=== PATIENT | female | born 1975 ===

== ENCOUNTER 2017-08-04 12:58 | Emergency (ER) | payer MEDICARE ==
[2017-08-04] MEDS ORDERED: Sodium Chloride 0.9% 500 ML IV STA (14:01)
[2017-08-04 14:16] LABS: BASO # 0.1 K/uL (0.0-0.2); EOS # 1.1 K/uL (0.0-0.7); EOS % 16.8 % (0.0-4.0); LYMPH # 1.6 K/uL (1.0-4.3); LYMPH % 25.6 % (20.0-40.0); MEAN CORPUSCULAR HEMOGLOBIN 22.1 pg (27.0-31.0); MEAN CORPUSCULAR HGB CONC 32.4 g/dL (33.0-37.0); MEAN PLATELET VOLUME 8.8 fL (7.2-11.7); MONO # 0.5 K/uL (0.0-0.8); MONO % 7.4 % (0.0-10.0); NEUT # 3.1 K/uL (1.8-7.0); NEUT % 48.2 % (50.0-75.0); RBC 4.45 Mil/uL (3.80-5.20); RED CELL DISTRIBUTION WIDTH 17.3 % (11.5-14.5); WHITE BLOOD COUNT 6.3 K/uL (4.8-10.8)
[2017-08-04 14:17] LABS: HEMOGLOBIN 9.8 g/dL (11.0-16.0)
[2017-08-04 14:24] LABS: INR 6.3
[2017-08-04 14:28] LABS: PROTHROMBIN TIME 69.2 SECONDS (9.7-12.2)
[2017-08-04 14:32] LABS: ALB/GLOB RATIO 1.2 (1.0-2.1); ALBUMIN 4.2 g/dL (3.5-5.0); ALT/SGPT 34 U/L (9-52); AST/SGOT 30 U/L (14-36); BLOOD UREA NITROGEN 10 mg/dL (7-17); CALCIUM 9.4 mg/dl (8.6-10.4); GFR AFRICAN-AMERICAN > 60; GFR NON-AFRICAN AMERICAN > 60
--- NOTE | 2017-08-04 14:47 | C.PDOC ---
History Of Present Illness 41-year-old female, presents to the emergency department, sent by Dr Arreola for evaluation of high INR level >8. Patient denies any vaginal or rectal bleeding, but admits to hematemesis. Denies fever, chest pain or shortness of breath. No other complaints at this time. Time Seen by Provider: 08/04/17 13:15 Chief Complaint (Nursing): Abnormal Labs History Per: Patient History/Exam Limitations: no limitations Current Symptoms Are (Timing): Still Present Past Medical History Reviewed: Historical Data, Nursing Documentation, Vital Signs Vital Signs: Last Vital Signs Temp 98.7 F 08/04/17 17:54 Pulse 92 H 08/04/17 17:54 Resp 18 08/04/17 17:54 BP 156/89 H 08/04/17 17:54 Pulse Ox 98 08/04/17 17:54 - Medical History PMH: Anxiety, Atrial Fibrillation, Diabetes, HTN Family History: States: No Known Family Hx - Social History Hx Alcohol Use: No Hx Substance Use: No - Immunization History Hx Tetanus Toxoid Vaccination: No Hx Influenza Vaccination: Yes Hx Pneumococcal Vaccination: No Review Of Systems Constitutional: Negative for: Fever, Chills Cardiovascular: Negative for: Chest Pain Respiratory: Negative for: Shortness of Breath Gastrointestinal: Negative for: Vomiting Neurological: Negative for: Weakness, Numbness, Headache, Dizziness Physical Exam - Physical Exam Appears: Non-toxic, No Acute Distress Skin: Normal Color, Warm, Dry, No Rash Head: Atraumatic, Normacephalic Eye(s): bilateral: PERRL Nose: Normal Oral Mucosa: Moist Lips: Normal Appearing Neck: Normal ROM Chest: Symmetrical Cardiovascular: Rhythm Regular, No Murmur Respiratory: Normal Breath Sounds, No Accessory Muscle Use Rectal: Normal Exam, Heme Negative Back: Normal Inspection Extremity: Normal ROM, No Deformity, No Swelling Neurological/Psych: Oriented x3, Normal Speech ED Course And Treatment - Laboratory Results Result Diagrams: 08/04/17 14:10 08/04/17 14:10 O2 Sat by Pulse Oximetry: 98 (RA) Pulse Ox Interpretation: Normal Progress Note: Bloodwork, IVF and UA ordered and reviewed. Patient was given Vit K po. Patient is stable to be d/c home with PMD follow up tomorrow. Disposition - Disposition Disposition: HOME/ ROUTINE Disposition Time: 17:22 Condition: STABLE Additional Instructions: Follow up with your PMD within 1-2 days. Do not take Coumadin today. Please return to your PMD to check INR tomorrow. Return to ED immediately if feel worse. Instructions: What to Do When Your INR Is Too High Forms: [facility] (Swedish) Print Language: ALBANIAN - Clinical Impression Clinical Impression: Warfarin-induced coagulopathy - Scribe Statement The provider has reviewed the documentation as recorded by the Scribe (Sarika Tran) All medical record entries made by the Scribe were at my direction and personally dictated by me. I have reviewed the chart and agree that the record accurately reflects my personal performance of the history, physical exam, medical decision making, and the department course for this patient. I have also personally directed, reviewed, and agree with the discharge instructions and disposition.
[2017-08-04 15:15] LABS: HCG,QUALITATIVE URINE NEGATIVE (NEGATIVE)
[2017-08-04 15:19] VITALS: TEMP 98.7
[2017-08-04 15:20] LABS: SQUAMOUS EPITHIAL 2 /hpf (0-5); URINE BILIRUBIN NEGATIVE (NEGATIVE); URINE BLOOD 1+ (NEGATIVE); URINE CLARITY Clear (Clear); URINE COLOR Straw (YELLOW); URINE GLUCOSE (UA) 1+ mg/dL (Normal); URINE LEUKOCYTE ESTERASE 1+ Leu/uL (Negative); URINE PROTEIN NEGATIVE (NEGATIVE); URINE UROBILINOGEN NORMAL mg/dL (0.2-1.0)
[2017-08-04] MEDS ORDERED: Phytonadione 2.5 MG/0.5 TAB TAB PO STA (16:44)
--- NOTE | 2017-08-04 17:09 | RAD ---
HISTORY: Elevated INR COMPARISON: Comparison chest 01/17/2016 FINDINGS: LUNGS: No active pulmonary disease. PLEURA: No significant pleural effusion identified, no pneumothorax apparent. CARDIOVASCULAR: Sternotomy wires. Heart size within range of normal. OSSEOUS STRUCTURES: No significant abnormalities. VISUALIZED UPPER ABDOMEN: Normal. OTHER FINDINGS: None. IMPRESSION: No acute consolidation.
[2017-08-04 17:31] VITALS: O2SAT 98
[2017-08-04 17:55] VITALS: BP 156/89; PULSE 92; RESP 18
== END 2017-08-04 17:55 | disposition home or self-care (01) ==
LOC: C.ER 12:58
DX: D68.8 Other specified coagulation defects (principal)
CPT/HCPCS: 71045; 80053; 81001; 84703; 85025; 85610; 85730; 96360; 99285; G0328; J7040

== ENCOUNTER 2018-08-17 15:41 | Outpatient (CLI) | payer MEDICARE | END 2018-08-17 15:42 | disposition home or self-care (01) | LOC: C.MAMMO 15:41 | DX: Z12.31 Encounter for screening mammogram for malignant neoplasm of breast (principal) ==